=== PATIENT | female | born 1990 | race African-American/Black ===

== ENCOUNTER 2020-08-21 08:56 | Emergency (ER) | payer MEDICAID ==
[2020-08-21 09:05] VITALS: BP 115/79
--- NOTE | 2020-08-21 09:57 | ER Document Report ---
HPI - HPI Time Seen by Provider: 08/21/20 09:39 Pain Level: Denies Notes: 29-year-old female presents to the emergency room today for evaluation of her left fourth finger after she accidentally had a costume ring on that she slept in overnight, states this morning she was unable to take off from her hand. Reports she is having some swelling of her left fourth finger unable to take off the ring. Patient states she tried to remove the ring with soap and water but w as unable to. LMP 2 weeks ago. Denies any numbness or tingling to bilateral fingers. Denies any pain. Has not tried any [id number] medications. Denies any fevers or chills. left 4th finger has already had the ring cut off prior to assessment due to not being able to remove with soap and water - CONSTITUTIONAL Constitutional: DENIES: Fever, Chills - REPRODUCTIVE LMP: arm implant Reproductive: DENIES: : Past Medical History - General Information source: Patient - Social History Smoking Status: Never Smoker Chew tobacco use (# tins/day): No Frequency of alcohol use: None Drug Abuse: Marijuana Family History: None Patient has homicidal ideation: No Past Surgical History: Reports: Hx Section - x1, Hx Cholecystectomy, Hx Orthopedic Surgery - rt femur kendall - Immunizations Immunizations up to date: Yes Hx Diphtheria, Pertussis, Tetanus Vaccination: Yes Vertical Provider Document - CONSTITUTIONAL Agree With Documented VS: Yes Exam Limitations: No Limitations General Appearance: WD/WN Notes: MEDICATIONS: I agree with the patient medications as charted by the RN. ALLERGIES: I agree with the allergies as charted by the RN. PAST MEDICAL HISTORY/PAST SURGICAL HISTORY: Reviewed and agree as charted by RN. SOCIAL HISTORY: Reviewed and agree as charted by RN. FAMILY HISTORY: No significant familial comorbid conditions directly related to patient complaint EXAM: Reviewed vital signs as charted by RN. PHYSICAL EXAMINATION: reviewed vital signs by RN GENERAL: Well-appearing, well-nourished and in no acute distress. HEAD: Atraumatic, normocephalic. EYES: Pupils equal round and reactive to light, extraocular movements intact, conjunctiva are normal. ENT: Nares patent, oropharynx clear without exudates. Moist mucous membranes. NECK: Normal range of motion, supple without lymphadenopathy LUNGS: Breath sounds clear to auscultation bilaterally and equal. No wheezes rales or rhonchi. HEART: Regular rate and rhythm without murmurs ABDOMEN: Soft, nontender, nondistended abdomen. No guarding, no rebound. No masses appreciated. Female : deferred Musculoskeletal: Normal range of motion, no pitting or edema. No cyanosis. NEUROLOGICAL: Cranial nerves grossly intact. Normal speech, normal gait. Normal sensory, motor exams PSYCH: Normal mood, normal affect. SKIN: Warm, Dry, normal turgor, no rashes or lesions noted. left 4th phalanx without any erythema, induration or warmth to touch. no discoloration. No pain to left fingers on palpation. no pain to wrist with flexion, extension, inversion, eversion of wrist. 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 Snuffbox tenderness negative on left. radial pulses + 2 BUE equally. Negative kanavels sign. No open wounds or drainage from wrist. No vascular compromise.No body crepitus or focal area of TTP. no pain with opposition, flexion, extension, abduction and adduction on left hand. Motor and sensory function of ulnar, radial, medial nerves intact bilaterally and equally. strength 5/5 in BUE equally. - INFECTION CONTROL TRAVEL OUTSIDE OF THE [place] IN LAST 30 DAYS: No Course - Re-evaluation Re-evalutation: 08/21/20 12:51 Afebrile vital stable no distress. Nurses notes reviewed. Ring was removed prior to assessment due to being unable to remove it with soap and water. Was cut off without any issues. Patient is denying any pain at this time. Adequate cap refill to all fingers. No numbness or tingling. No focal neurological deficits. Advised to keep elevated level of heart for continued have any swelling. Discussed adamantly about wearing properly fitting rings as it can cause try to get like issues. After performing a Medical Screening Examination, I estimate there is LOW risk for OPEN FRACTURE, COMPARTMENT SYNDROME, DEEP VENOUS THROMBOSIS, ACUTE TENDON RUPTURE, or NEUROVASCULAR INJURY thus I consider the discharge disposition reasonable. I have reevaluated this patient multiple times and no significant life threatening changes are noted. The patient and I have discussed the diagnosis and risks, and we agree with discharging home to closely follow-up with their primary doctor or the referral orthopedist with the understanding that symptoms and presentations can change. We also discussed returning to the Emergency Department immediately if new or worsening symptoms occur. We have discussed the symptoms which are most concerning (e.g., changing or worsening pain, numbness, weakness) that necessitate immediate return - Vital Signs Vital signs: Temp Pulse Resp BP Pulse Ox 97.5 F 71 20 115/79 100 08/21/20 09:05 08/21/20 09:05 08/21/20 09:05 08/21/20 09:05 08/21/20 09:05 - Laboratory Results Critical Laboratory Results Reviewed: No Critical Results - Radiology Results Critical Radiology Results Reviewed: No Critical Results Discharge - Discharge Clinical Impression: swollen finger Condition: Stable Disposition: HOME, SELF-CARE Additional Instructions: Your ring was cut off today due to it being too small for your finger. Please ice 20 minutes on 20 minutes off several times a day. Alternating Tylenol and ibuprofen for pain control. Avoid wearing rings that are too tight as it can cause swelling and affect a tourniquet around your finger. Return immediately for any new or worsening symptoms. Follow up with primary care provider, call tomorrow to make followup appointment. Referrals: LUIS ARMANDO PAIGE MD [Primary Care Provider] - Follow up as needed KORY COLIN MD [ACTIVE STAFF] - Follow up as needed
== END 2020-08-21 09:45 | disposition home or self-care (01) ==
LOC: ER 08:56
DX: S60.455A Superficial foreign body of left ring finger, initial encounter (principal); M79.89 Other specified soft tissue disorders; W45.8XXA Other foreign body or object entering through skin, initial encounter
CPT/HCPCS: 99282